=== PATIENT | male | born 1940 | race Caucasian/White ===

== ENCOUNTER 2018-09-23 06:04 | Inpatient (IN) | payer MEDICARE ==
[2018-09-23] VITALS (17 sets, daily range): BP systolic 102–144; BP diastolic 68–90; Ht 172.7 cm; Wt 44.1 kg
[~2018-09-23] VITALS: Ht 172.7 cm; Wt 44.1 kg
[2018-09-23 08:05] LABS: BASOPHILS 0.1 % (0-2); EOSINOPHILS 0.2 % (0-7); HEMATOCRIT 23.8 % (42.0-54.0); HEMOGLOBIN 7.8 g/dL (13.5-17.5); IMMATURE GRANULOCYTES 0.6 % (0-5); LYMPHOCYTES 9.4 % (15-50); MCH 33.8 pg (26.0-34.0); MCHC 32.8 g/dL (31.0-37.0); MEAN PLATELET VOLUME 8.9 fL (7.4-10.4); MONOCYTES 3.1 % (2-11); NEUTROPHILS 86.6 % (40-80); PLATELET COUNT 545 10x3/uL (130-400); RBC 2.31 10x6/uL (4.20-6.10); RDW 17.6 % (11.5-14.5); WBC 19.9 10x3/uL (4.8-10.8)
--- NOTE | 2018-09-23 08:11 | NUR ---
VANCOMYCIN INFUSION THAT WAS STARTED AT [facility] WAS COMPLETE AT 0730. ZOSYN INFUSION COMPLETE AT 0810AM.
[2018-09-23 08:55] LABS: ALKALINE PHOSPHATASE 93 U/L (46-116); ALT (SGPT) 35 U/L (10-68); BILIRUBIN - TOTAL 0.27 mg/dL (0.2-1.3); CALC OSMOLALITY 281 mosm/kg (275-300); CALCIUM 8.4 mg/dL (8.5-10.1); CARBON DIOXIDE 26.3 mmol/L (21.0-32.0); CHLORIDE - SERUM 101 mmol/L (98-107); CREATININE - SERUM 0.8 mg/dL (0.6-1.3); GLUCOSE 104 mg/dL (74-106); POTASSIUM - SERUM 4.2 mmol/L (3.5-5.1); SODIUM 140 mmol/L (136-145); UREA NITROGEN 22 mg/dL (7-18); eGFR NON AFRICAN AMERICAN > 90 mL/min (90-120)
[2018-09-23 08:57] LABS: TROPONIN-I 4.733 ng/mL (0.000-0.060)
--- NOTE | 2018-09-23 09:00 | NUR ---
REC'D PT FROM ER, MONITORS ON AND WORKING, VITALS STABLE, PT AWAKE AND ALERT, CALL LIGHT WITHIN REACH, WILL CONTINUE TO OBSERVE.
[2018-09-23] MEDS ORDERED: PLAVIX75 MG (09:05)
[2018-09-23] MEDS ORDERED: NEURONTIN 300300 MG (09:07)
[2018-09-23] MEDS ORDERED: ALBUTEROL SULF8.5 GM (09:08)
[2018-09-23] MEDS ORDERED: HYDROCODON-ACE1 EA10 (09:08)
--- NOTE | 2018-09-23 11:00 | NUR ---
NO CHNAGES, FAMILY AT BEDSIDE, UPDATE PROVIDED. NO SIGNS/SYMPTOMS OF PAIN OR DISCOMFORT NOTED. DR DUMONT CONSULTED, SPOKE WITH CHRISTINA IN COATING ENGINEER, TIM IS AWARE OF CONSULT.
--- NOTE | 2018-09-23 13:00 | NUR ---
PT AWAKE AND ALERT, NO SIGNS/SYMPTOMS OF PAIN OR DISCOMFORT, MONITORS ON AND WORKING, VITALS STABLE, FAMILY AT BEDSIDE UPDATE PROVIDED, WILL CONTINUE TO OBSERVE.
--- NOTE | 2018-09-23 15:00 | NUR ---
NO CHANGES, SEE FLOW SHEET FOR FURHTER DETAILS. MONITORS ON AND WORKING, VITALS STABLE, CALL LIGHT WITHIN REACH, WILL CONTINUE TO OBSERVE.
--- NOTE | 2018-09-23 17:00 | NUR ---
PT TURNED AND REPOSITIONED FOR COMFORT, MONITORS ON AND WORKING, VITALS STABLE. WILL CONTINUE TO OBSERVE.
--- NOTE | 2018-09-23 19:30 | NUR ---
SHIFT ASSESSMENT COMPLETE, PER NURSING FLOWSHEET. PATIENT REPOSITIONED, DRINK PROVIDED, PER AHA DIET
--- NOTE | 2018-09-23 20:00 | NUR ---
MULTIPLE FAMILY MEMBERS AT BEDSIDE, UPDATE GIVEN, QUESTIONS ANSWERED
--- NOTE | 2018-09-23 21:00 | NUR ---
PATIENT REPOSITIONED, NC REPLACED IN PATIENTS NOSE, HE HAD REMOVED. WILL CONTINUE TO MONITOR, C/L IN REACH
--- NOTE | 2018-09-23 23:00 | NUR ---
RE-ASSESSMENT COMPLETE, PER NURSING FLOWSHEET. PATIENT REPOSITIONED AND PULLED UP IN BED, NC REPOSITIONED PATIENT REMOVED. USING PERIPHERAL 02 MONITOR TO DOUBLE CHECK OXYGEN SATURATION EAR PROBE IS INCONSISTENTLY REGISTERING. CONTINUE POC
[2018-09-24] VITALS (17 sets, daily range): BP systolic 98–124; BP diastolic 64–84
--- NOTE | 2018-09-24 01:00 | NUR ---
PATIENT REPOSITIONED AND PULLED UP IN BED, NC REPLACED/REPOSITIONED FOR EFFICIENCY. PERIPHERAL OXYGEN MONITOR USED TO DOUBLE CHECK O2 LEVELS TO ENSURE ACCURACY. C/L IN REACH
--- NOTE | 2018-09-24 03:00 | NUR ---
RE-ASSESSMENT COMPLETE, PATIENT REPOSITIONED AND PULLED UP IN BED. NC REPLACED/REPOSITIONED, CONTINUE POC
[2018-09-24 04:15] LABS: BASOPHILS 0 % (0-2); EOSINOPHILS 0 % (0-7); HEMATOCRIT 22.3 % (42.0-54.0); IMMATURE GRANULOCYTES 0.6 % (0-5); LYMPHOCYTES 7.4 % (15-50); MCH 33.6 pg (26.0-34.0); MCHC 32.7 g/dL (31.0-37.0); MCV 102.8 fL (80.0-100.0); MEAN PLATELET VOLUME 8.9 fL (7.4-10.4); MONOCYTES 3.2 % (2-11); NEUTROPHILS 88.8 % (40-80); PLATELET COUNT 448 10x3/uL (130-400); RBC 2.17 10x6/uL (4.20-6.10); RDW 18.1 % (11.5-14.5)
[2018-09-24 04:23] LABS: WBC 13.9 10x3/uL (4.8-10.8)
[2018-09-24 04:24] LABS: HEMOGLOBIN 7.3 g/dL (13.5-17.5)
[2018-09-24 04:50] LABS: ALBUMIN 1.7 g/dL (3.4-5.0); ALKALINE PHOSPHATASE 80 U/L (46-116); BILIRUBIN - TOTAL 0.36 mg/dL (0.2-1.3); CALC OSMOLALITY 282 mosm/kg (275-300); CALCIUM 7.8 mg/dL (8.5-10.1); CARBON DIOXIDE 26.4 mmol/L (21.0-32.0); CHLORIDE - SERUM 104 mmol/L (98-107); CREATININE - SERUM 0.9 mg/dL (0.6-1.3); GLUCOSE 106 mg/dL (74-106); MAGNESIUM - SERUM 2.1 mg/dL (1.8-2.4); POTASSIUM - SERUM 4.3 mmol/L (3.5-5.1); PROTEIN - SERUM 6.1 g/dL (6.4-8.2); SODIUM 140 mmol/L (136-145); UREA NITROGEN 25 mg/dL (7-18); eGFR NON AFRICAN AMERICAN 87 mL/min (90-120)
[2018-09-24 04:51] LABS: ALT (SGPT) 101 U/L (10-68)
--- NOTE | 2018-09-24 05:00 | NUR ---
PATIENT REPOSITIONED, ORAL CARE PROVIDED. PATIENT PULLED UP IN BED, PERIPHERALLY OXYGEN MONITOR USED TO DOUBLE CHECK O2 SAT FOR ACCURACY, WILL CONTINUE TO MONITOR.
--- NOTE | 2018-09-24 08:54 | NUR ---
FAMILY AT BEDSIDE GIVEN UDPATE
--- NOTE | 2018-09-24 09:28 | NUR ---
Nutrition follow-up: Diet: AHA low sodium PO intake ~30% of last 2 meals Labs reviewed Wt: 97# Recommend changing diet order to regular as tolerated due to pts malnutrition. RDN following.
--- NOTE | 2018-09-24 11:24 | NUR ---
FISHING TACKLE REPAIRER CALLED GIVEN UDPATE. STATED TO PREOP AND ADM 2 U PRBC
--- NOTE | 2018-09-24 11:35 | NUR ---
REASSESSMENT COMPLETE PER FLOW SHEET. VSS. NO NEW CHANGES WILL CONTINUE TO MONITOR
--- NOTE | 2018-09-24 13:30 | NUR ---
[facility] AT BEDSIDE SPOKE TO FAMILY AT GREAT LENGTH.
--- NOTE | 2018-09-24 15:06 | MORECARE ---
CASE MANAGEMENT DISCHARGE SUMMARY PATIENT: NICOLE IYER UNIT: [id number] ADM DATE: 09/23/18 AGE: 77 : 42 SEX: M ROOM/BED: D.2306 AUTHOR: ROMAN ALBRECHT PHYSICIAN: REFERRING PHYSICIAN: RAMONE JANG MD DATE OF SERVICE: 09/24/18 Discharge Plan Patient Name: NICOLE IYER [facility] : 1940 Planned Disposition: Home with Hospice Anticipated Discharge Date: Discharge Date: Expected LOS: Initial Reviewer: [email or web address] Initial Review Date: 09/23/2018 Generated: 09/24/18 4:06 pm DCPIA - Discharge Planning Initial Assessment Updated by [email or web address]: Xenia Agarwal on 09/24/18 3:03 pm * Is the patient Alert and Oriented? Yes * How many steps to enter\exit or inside your home? * PCP DR. POE * Preadmission Environment Home with Family * ADLs Partial Dependent * Additional services required to return to the preadmission environment? No * Can the patient safely return to the preadmission environment? Yes * Has this patient been hospitalized within the prior 30 days at any hospital? No Patient Name: NICOLE IYER Page 18387 at 1506 All edits/amendments must be made on the electronic document DICTATION DATE: 09/24/18 1505 ASSISTANT FINANCE DIRECTOR: ERMA 09/24/18 1505 RPT#: [id number] DC DATE: STATUS: ADM IN [facility] [address] [place] [address] END OF REPORT
--- NOTE | 2018-09-24 15:10 | NUR ---
TANNA NURSE AT BEDSIDE AT THIS TIME ASSESSMENT COMPLETE MAY DISCHARGE AT THIS TIME
--- NOTE | 2018-09-24 15:41 | MORECARE ---
CASE MANAGEMENT DISCHARGE SUMMARY PATIENT: NICOLE IYER UNIT: [id number] ADM DATE: 09/23/18 AGE: 77 : 42 SEX: M ROOM/BED: D.2306 AUTHOR: ROMAN ALBRECHT PHYSICIAN: REFERRING PHYSICIAN: RAMONE JANG MD DATE OF SERVICE: 09/24/18 Discharge Plan Patient Name: NICOLE IYER Facility: [facility]:[place] : 1940 Planned Disposition: Home with Hospice Anticipated Discharge Date: Discharge Date: Expected LOS: Initial Reviewer: [email or web address] Initial Review Date: 09/23/2018 Generated: 09/24/18 4:41 pm Comments DCP- Discharge Planning Updated by [email or web address]: Xenia Agarwal on 09/24/18 2:[address] Patient Name: NICOLE IYER Admission Status: ER Accout number: [id number] Admission Date: 09-23-2018 : 1940 Admission Diagnosis: Attending: RAMONE JANG Current LOS: 1 Anticipated DC Date: Planned Disposition: Home with Hospice Primary Insurance: MEDICARE A & B Discharge Planning Comments: CM was notified that patient and family is requesting Hospice. CM met with patient and family at bedside. Patient states "I'm tired I don't want to be poked any more." CM discussed Hospice options and patient wants to go home with hospice. MORALES signed for [facility]. CM called and notified Mal Venango with [facility]. Mal and Hospice nurse here to evaluate patient. Plan is for patient to go home with hospice care. CM will continue to follow and assist as needed with discharge planning / needs. Dividend Deposit Entry Clerk: Xenia Agarwal DCPIA - Discharge Planning Initial Assessment Updated by [email or web address]: Xenia Agarwal on 09/24/18 3:03 pm * Is the patient Alert and Oriented? Yes * How many steps to enter\\exit or inside your home? * PCP DR. OPE * Preadmission Environment Home with Family * ADLs Partial Dependent * Additional services required to return to the preadmission environment? No * Can the patient safely return to the preadmission environment? Yes * Has this patient been hospitalized within the prior 30 days at any hospital? No Last DP export: 09/24/18 2:06 p Patient Name: NICOLE IYER Page [id number] at 1541 All edits/amendments must be made on the electronic document DICTATION DATE: 09/24/18 154 NIGHT SHIFT: ERMA 09/24/18 154 RPT#: [id number] DC DATE: STATUS: ADM IN [facility] [address] [place] [address] END OF REPORT
--- NOTE | 2018-09-24 16:40 | NUR ---
PT WITH SON, ASSISTED VIA WHEELCHAIR TO TRUCK WITHOUT DIFFICULTY. NEEDS MET
--- NOTE | 2018-09-25 11:28 | CN ---
PATIENT NAME:NICOLE IYER MEDICAL RECORD: [id number] : 44 LOCATION:GABI.2306 ADMIT DATE: 09/23/18 ACCOUNT: [id number] CONSULTING PHYSICIAN: KELLY DUMONT MD REFERRING PHYSICIAN: RAMONE JANG MD DATE OF CONSULTATION: 09/23/2018 DIAGNOSES: 1. Non-Q-wave myocardial infarction. 2. Coronary artery disease. 3. Peripheral vascular disease. 4. Tachycardia. 5. Shortness of breath, dyspnea on exertion. 6. COPD. 7. Smoking history. 8. Pneumonia. HISTORY OF PRESENT ILLNESS: Mr. Iyer presents with chest pain and shortness of breath, found to have a non-Q-wave myocardial infarction. He does have a history of coronary artery disease, cardiac stents and peripheral vascular disease, peripheral stents. He as well has a pneumonia, possible sepsis, and is being treated for this. His respiratory status is tenuous. He is having chest pressure. Currently, his heart rates in the 130s, sinus tachycardia. His EKG, however, has no acute changes on it, only nonspecific ST-T abnormalities. He has received his care at [facility], we do not know his cardiac or peripheral details of his previous interventions. PHYSICAL EXAMINATION: GENERAL APPEARANCE: Well-nourished, well-developed, appears stated age. Level of distress, comfortable. PSYCHIATRIC: Mental status, alert, normal affect. Orientation, oriented to time, place and person. EYES: Lids and conjunctiva, noninjected. No discharge, no pallor. ENT: Lips, teeth, gums, normal dentition. Oropharynx, no cyanosis, no pallor. NECK: Carotid arteries, bilateral normal upstroke, no bruits, no thrills. JUGULAR VEINS: No jugular venous pressure or distention. CERVICAL LYMPH NODES: Nontender, nonenlarged. THYROID: Not enlarged. Nontender. No nodules. LUNGS: Respiratory effort, unlabored. CHEST: Normal curvature. No thoracic deformity. No chest wall tenderness. Percussion, resonant. Auscultation, clear. No wheezes, no rales, no rhonchi. CARDIOVASCULAR: Precordial exam, nondisplaced. No heaves or pericardial thrills. Rate and rhythm, regular. Heart sounds, normal S1, normal S2. No S3, no gallop, no rub. Systolic murmur, not heard. Diastolic murmur, not heard. EXTREMITIES: No cyanosis, no edema. Peripheral pulses, full and equal in all extremities, except as noted. No bruits appreciated. ABDOMEN: Soft, nondistended. Normal aorta. No bruit. Nontender. No masses. Liver, nontender, no hepatomegaly. Spleen, nontender, no splenomegaly. MUSCULOSKELETAL: No joint tenderness. No joint swelling. No erythema. NEUROLOGICAL: Normal gait, normal strength, normal tone. SKIN: Warm and dry. OVERALL IMPRESSION: Non-Q-wave myocardial infarction, coronary artery disease. At this time, we will treat medically secondary to his tenuous respiratory status. We will proceed with starting beta blockade therapy with Coreg 12.5 CONSULT REPORT [id number] NICOLE IYER b.i.brian, antiplatelet therapy with aspirin and Plavix. We will get an echocardiogram today. TRANSINT:[id number] Voice Confirmation ID: [id number] DOCUMENT ID: [id number] KELLY DUMONT MD at 1128 CC: [id number] DICTATION DATE: 09/23/18 1148 ELIGIBILITY SERVICES REPRESENTATIVE: 09/23/18 1234 DIS IN 09/24/18 [facility] [address] [place] [address]
--- NOTE | 2018-09-25 11:28 | EC ---
PATIENT:NICOLE IYER DATE OF SERVICE: 09/23/18 SEX: M MEDICAL RECORD: [id number] DATE OF : [birth year] LOCATION:[facility] AGE OF PATIENT: 77 ADMISSION DATE: 09/23/18 REFERRING PHYSICIAN: INTERPRETING PHYSICIAN: KELLY HERNANDEZ MD ECHOCARDIOGRAM REPORT ECHO CHARGES 5 ECHO LIMITED Date: 09/23/18 CLINICAL DIAGNOSIS: SC/ CANCER/RECENT CHEMO/ CAD ECHOCARDIOGRAPHIC MEASUREMENTS (adult normal given) AC root (d.<3.7cm) 2.8 cm LV Septum d (<1.2 cm> 1.4 cm Valve Excursion 1.4 cm LV Septum (systole) 1.5 cm Left Atria (s.<4.0cm> 4.9 cm LVPW d(<1.2cm) 1.3 cm RV (d.<2.3cm) 3.9 cm LVPW (sytole) 1.4 cm LV diastole(<5.6CM) 4.9 cm MV E-F(>70mm/sec) cm LV systole 4.0 cm LVOT Diameter 2.3 cm MV exc.(>10mm) 1.1 cm Est.ejection fraction (50-75%) % DOPPLER: LVIT cm/sec A cm/sec E cm/sec LA cm/sec RVSP 73 mmHg LVOT 66 cm/sec AOP1/2T m/s Asc. Ao 93 cm/sec RVOT cm/sec RA cm/sec PA cm/sec AV Gradient Peak 3.44 mmHg AV Mean 1.69 mmHg AV Area 3.5 cm MV Gradient Peak mmHg MV Mean mmHg MV Area cm COMMENTS: Snuff Maker: Angie HAUSER Academy Director: 1 Dr. Hernandez TAPE# PACS Pericardial Effusion Y DATE OF SERVICE: 09/23/2018 FINDINGS: 1. Left ventricular chamber size is dilated. Left ventricular systolic function is markedly reduced. Overall ejection fraction in 20% to 25% range. 2. Left atrium, right atrium, and right ventricular chamber sizes are dilated, giving 4-chamber dilatation. Left atrium measures 4.9 cm. 3. Valvular structures have normal structure and motion. 4. Doppler interrogation reveals mild mitral regurgitation and moderate tricuspid regurgitation. No other valvular insufficiency or stenosis. ECHOCARDIOGRAM REPORT [id number] NICOLE IYER Pulmonary systolic pressure is markedly elevated, estimated at 73 mmHg. 5. No evidence of pericardial effusion or left ventricular thrombus. TRANSINT:[id number] Voice Confirmation ID: [id number] DOCUMENT ID: [id number] KELLY HERNANDEZ MD at 1128 CC: [id number] DICTATION DATE: 09/23/18 1241 BODY STRAIGHTENER: 09/23/18 1355 DIS IN 09/24/18 [place] [id number] [place] [id number]
--- NOTE | 2018-09-25 13:03 | MORECARE ---
CASE MANAGEMENT DISCHARGE SUMMARY PATIENT: NICOLE IYER UNIT: [id number] ADM DATE: 09/23/18 AGE: 77 : 44 SEX: M ROOM/BED: D.2306 AUTHOR: ROMAN ALBRECHT PHYSICIAN: REFERRING PHYSICIAN: RAMONE JANG MD DATE OF SERVICE: 09/25/18 Discharge Plan Patient Name: NICOLE IYER Facility: [facility]:[place] : 1940 Planned Disposition: Home with Hospice Anticipated Discharge Date: Discharge Date: 09/24/2018 Expected LOS: Initial Reviewer: [email or web address] Initial Review Date: 09/23/2018 Generated: 09/25/18 2:02 pm Comments DCP- Discharge Planning Updated by [email or web address]: Xenia Agarwal on 09/24/18 2:[address] Patient Name: NICOLE IYER Admission Status: ER Accout number: [id number] Admission Date: 09-23-2018 : 1940 Admission Diagnosis: Attending: RAMONE JANG Current LOS: 1 Anticipated DC Date: Planned Disposition: Home with Hospice Primary Insurance: MEDICARE A & B Discharge Planning Comments: CM was notified that patient and family is requesting Hospice. CM met with patient and family at bedside. Patient states "I'm tired I don't want to be poked any more." CM discussed Hospice options and patient wants to go home with hospice. MORALES signed for [facility]. CM called and notified Mal Garcia with [facility]. Mal and Hospice nurse here to evaluate patient. Plan is for patient to go home with hospice care. CM will continue to follow and assist as needed with discharge planning / needs. Supervisor Grounds: Xenia Agarwal DCPIA - Discharge Planning Initial Assessment Updated by [email or web address]: Xenia Agarwal on 09/24/18 3:03 pm * Is the patient Alert and Oriented? Yes * How many steps to enter\\exit or inside your home? * PCP DR. POE * Preadmission Environment Home with Family * ADLs Partial Dependent * Additional services required to return to the preadmission environment? No * Can the patient safely return to the preadmission environment? Yes * Has this patient been hospitalized within the prior 30 days at any hospital? No Last DP export: 09/24/18 2:41 p Patient Name: NICOLE IEYR Page 20915 at 1303 All edits/amendments must be made on the electronic document DICTATION DATE: 09/25/18 1302 FIRE WATCHER: ERMA 09/25/18 1302 RPT#: [id number] DC DATE:09/24/18 STATUS: DIS IN [facility] [address] [place] [address] END OF REPORT
== END 2018-09-24 17:20 | disposition home health service (06) | DRG 871 ==
LOC: D.ER 06:04 → D.ICU 07:39
PROVIDERS: Emergency Medicine; Family Medicine; ADMIT Family Medicine; ATTEND Family Medicine
DX: A41.9 Sepsis, unspecified organism (principal); I21.4 Non-ST elevation (NSTEMI) myocardial infarction; J18.9 Pneumonia, unspecified organism; I50.23 Acute on chronic systolic (congestive) heart failure; E43 Unspecified severe protein-calorie malnutrition; C34.90 Malignant neoplasm of unspecified part of unspecified bronchus or lung; Z68.1 Body mass index [BMI] 19.9 or less, adult; R64 Cachexia; D47.3 Essential (hemorrhagic) thrombocythemia; D53.9 Nutritional anemia, unspecified; J44.9 Chronic obstructive pulmonary disease, unspecified; F17.200 Nicotine dependence, unspecified, uncomplicated; I25.10 Atherosclerotic heart disease of native coronary artery without angina pectoris; I27.29 Other secondary pulmonary hypertension; I50.813 Acute on chronic right heart failure; E83.51 Hypocalcemia; R06.03 Acute respiratory distress